=== PATIENT | female | born 1995 | race Caucasian/White ===

== ENCOUNTER 2024-04-06 14:44 | Emergency (ER) | payer SELFPAY ==
[2024-04-06 15:05] VITALS: BP 112/68; PULSE 89; RESP 18; TEMP 98.4; BMI 27.3
[2024-04-06] MEDS ORDERED: ACETAMINOPHEN 325 MG TABLET (FP) ONE (16:28)
[2024-04-06] MEDS: ACETAMINOPHEN 500 MG TABLET (FP) PO ONE (16:47)
[2024-04-06 16:51] LABS: BASO % 0.2 % (0-2.0); EOS % 0.8 % (0-4.5); HEMATOCRIT 42.5 % (32.4-45.2); HEMOGLOBIN 14.3 GM/dL (10.7-15.3); LYMPH % 32.5 % (8-40); MCHC 33.7 g/dl (32.0-36.0); MEAN CELL VOLUME 86.3 fl (80-96); MEAN PLT VOLUME 7.2 fl (7.5-11.1); MONO % 4.3 % (3.8-10.2); NEUT % 62.2 % (42.8-82.8); PLATELET COUNT 308 10^3/uL (134-434); RBC 4.92 M/mm3 (3.60-5.2); RDW 14.2 % (11.6-15.6); WHITE BLOOD COUNT 7.5 K/mm3 (4.0-10.0)
[2024-04-06 17:02] LABS: EPI CELLS 23 /uL (0-25.1); HYALINE CASTS 0 /uL (0-3.1); PH,URINE 6.5 (5.0-8.0); URINE APPEARANCE CLOUDY; URINE BACTERIA 110 /uL (0-1359); URINE BILIRUBIN NEGATIVE (NEGATIVE); URINE COLOR ORANGE; URINE GLUCOSE (UA) NEGATIVE (NEGATIVE); URINE KETONE 1+ (NEGATIVE); URINE LEUK ESTERASE 1+ (NEGATIVE); URINE NITRITE NEGATIVE (NEGATIVE); URINE PROTEIN 1+ (NEGATIVE); URINE RBC 8333 /uL (0-23.9); URINE WBC 37 /uL (0-25.8)
[2024-04-06 17:23] LABS: POTASSIUM 3.7 mmol/L (3.5-5.1)
[2024-04-06 17:25] LABS: ALBUMIN 3.7 g/dl (3.4-5.0); BLOOD UREA NITROGEN 7.4 mg/dL (7-18); CALCIUM 8.8 mg/dL (8.5-10.1)
[2024-04-06 17:27] LABS: CREATININE 0.6 mg/dL (0.55-1.3)
[2024-04-06 17:30] LABS: BILIRUBIN,TOTAL 0.4 mg/dL (0.2-1); TOT PROT 7.9 g/dl (6.4-8.2)
[2024-04-06 18:13] LABS: HIV INTERPRETATION NEGATIVE (NEGATIVE)
== END 2024-04-06 18:54 | disposition home or self-care (01) ==
LOC: JER 14:44
DX: O03.9 Complete or unspecified spontaneous abortion without complication (principal)
CPT/HCPCS: 36415; 76817-TC; 80053; 81003; 84703; 85025; 86803; 86850; 86900; 86901; 87086; 87389; 99284-25